=== PATIENT | male | born 1965 | race Caucasian/White ===

== ENCOUNTER 2021-05-12 21:03 | Emergency (ER) | payer BC ==
[2021-05-12] MEDS ORDERED: Fluorescein Opthalmic Strip ONE (21:39)
[2021-05-12] MEDS ORDERED: Tetracaine 0.5% PF 4 ML BOT ONE (21:39)
[2021-05-12] MEDS ORDERED: Lidocaine 1% w/Epinephrine 1:100K 20 ML VIAL ONE (21:40)
[2021-05-12] MEDS ORDERED: HYDROcodone/Acetaminophen 10/325 mg Tablet ONE (22:47)
== END 2021-05-12 23:15 | disposition home or self-care (01) ==
LOC: CSHERS 21:03
DX: S02.40EA Zygomatic fracture, right side, initial encounter for closed fracture (principal); S02.2XXA Fracture of nasal bones, initial encounter for closed fracture; S02.31 Fracture of orbital floor, right side; S02.831A Fracture of medial orbital wall, right side, initial encounter for closed fracture; S20.20XA Contusion of thorax, unspecified, initial encounter; S01.01XA Laceration without foreign body of scalp, initial encounter; W22.8XXA Striking against or struck by other objects, initial encounter; F17.210 Nicotine dependence, cigarettes, uncomplicated
CPT/HCPCS: 12002; 12011; 70450; 70486; 71250; 72125; 74177